=== PATIENT | male | born 1975 | race African-American/Black ===

== ENCOUNTER 2023-08-01 17:37 | Emergency (ER) | payer SELFPAY ==
[~2023-08-01] VITALS: Ht 170.2 cm; Wt 68.2 kg
[2023-08-01 17:38] VITALS: BP 128/98; PULSE 76; TEMP 97.5
== END 2023-08-01 18:14 | disposition left against medical advice (07) ==
LOC: COL.ER 17:37
DX: S01.81XA Laceration without foreign body of other part of head, initial encounter (principal); X58.XXXA Exposure to other specified factors, initial encounter